=== PATIENT | female | born 1985 | race American Indian/Alaskan Native ===

== ENCOUNTER 2017-11-08 03:01 | Emergency (ER) | payer SELFPAY ==
[2017-11-08 04:17] LABS: Hematocrit 40.6 % (30.3-42.9); Hemoglobin 13.7 gm/dl (10.1-14.3); Mean Corpuscular HGB Conc 34 % (30-34); Mean Corpuscular Hemoglobin 30 pg (28-32); Mean Corpuscular Volume 90 fl (79-97); Platelet Count 357 K/mm3 (140-440); Red Blood Count 4.53 M/mm3 (3.65-5.03); Red Cell Distribution Width 12.9 % (13.2-15.2)
[2017-11-08 04:33] LABS: BUN/Creatinine Ratio 13; Blood Urea Nitrogen 10 mg/dL (7-17); Calcium 9.3 mg/dL (8.4-10.2); Hemolysis Index 5
--- NOTE | 2017-11-08 06:05 | Emergency Department Report ---
ED Seizure HPI - General Chief Complaint: Seizure Stated Complaint: SEIZURE Time Seen by Provider: 11/08/17 06:04 Source: patient, EMS Mode of arrival: Stretcher Limitations: No Limitations - History of Present Illness Initial Comments: Patient ran out of seizure medication and blood pressure medication for the past 2 weeks. She says she recently moved from [place] and she cannot get a medication refill. Patient complained of having a seizure while sleeping this morning. She is not post ictal at this time. She does not have any other complaint at this time. MD Complaint: seizure -: Sudden Description of Episode: loss of consciousness Witnessed:: No Trauma: No Seizure History: known seizure disorder, history of non-compliance Place: home Possible Precipitating Event: none Associated Symptoms: denies other symptoms Treatments Prior to Arrival: none - Related Data Previous Rx's Medication Instructions Recorded Last Taken Type Lisinopril/Hydrochlorothiazide 1 tab PO QDAY #60 tab 11/08/17 Unknown Rx [Zestoretic 20-25 mg] levETIRAcetam [Keppra] 750 mg PO BID #90 tablet 11/08/17 Unknown Rx Allergies Allergy/AdvReac Type Severity Reaction Status Date / Time Penicillins Allergy Rash Verified 11/08/17 03:14 ED Review of Systems ROS: Stated complaint: SEIZURE Other details as noted in HPI Comment: All other systems reviewed and negative Constitutional: denies: chills, fever Eyes: denies: eye pain, eye discharge ENT: denies: ear pain, throat pain Respiratory: denies: cough, orthopnea, shortness of breath Cardiovascular: denies: chest pain, palpitations, dyspnea on exertion Endocrine: no symptoms reported Gastrointestinal: denies: abdominal pain, nausea, vomiting, diarrhea Genitourinary: denies: urgency, dysuria, frequency Musculoskeletal: denies: back pain, joint swelling Skin: denies: rash, lesions, change in color Neurological: denies: headache, weakness, numbness Psychiatric: denies: anxiety, depression Hematological/Lymphatic: denies: easy bleeding, easy bruising ED Past Medical Hx - Past Medical History Hx Hypertension: Yes Hx Seizures: Yes - Surgical History Past Surgical History?: Yes Additional Surgical History: tubal - Social History Smoking Status: Former Smoker Substance Use Type: None - Medications Home Medications: Home Medications Medication Instructions Recorded Confirmed Last Taken Type Lisinopril/Hydrochlorothiazide 1 tab PO QDAY #60 tab 11/08/17 Unknown Rx [Zestoretic 20-25 mg] levETIRAcetam [Keppra] 750 mg PO BID #90 tablet 11/08/17 Unknown Rx ED Physical Exam - General Limitations: No Limitations General appearance: alert, in no apparent distress - Head Head exam: Present: atraumatic, normocephalic, normal inspection - Eye Eye exam: Present: normal appearance, PERRL, EOMI Pupils: Present: normal accommodation - ENT ENT exam: Present: normal exam, normal orophraynx, mucous membranes moist - Neck Neck exam: Present: normal inspection, full ROM. Absent: tenderness - Respiratory Respiratory exam: Present: normal lung sounds bilaterally. Absent: respiratory distress, wheezes, rales, rhonchi, stridor - Cardiovascular Cardiovascular Exam: Present: regular rate, normal rhythm, normal heart sounds - GI/Abdominal GI/Abdominal exam: Present: soft, normal bowel sounds. Absent: distended, tenderness, guarding, rebound, rigid - Extremities Exam Extremities exam: Present: normal inspection, full ROM, normal capillary refill. Absent: tenderness - Back Exam Back exam: Present: normal inspection, full ROM. Absent: tenderness - Neurological Exam Neurological exam: Present: alert, oriented X3, CN II-XII intact - Psychiatric Psychiatric exam: Present: normal affect, normal mood - Skin Skin exam: Present: warm, dry, intact, normal color. Absent: rash ED Course Vital Signs 11/08/17 11/08/17 11/08/17 03:03 06:55 06:56 Temperature 98 F Pulse Rate 84 72 72 Respiratory 18 Rate Blood Pressure 187/114 182/75 Blood Pressure 182/75 [Right] O2 Sat by Pulse 98 100 Oximetry 11/08/17 08:11 Temperature Pulse Rate 74 Respiratory 18 Rate Blood Pressure Blood Pressure 141/95 [Right] O2 Sat by Pulse 98 Oximetry - Reevaluation(s) Reevaluation #1: 11/08/17 16:07 Patient was told not to drive a motorized vehicle for the next 6 months until cleared by a neurologist. ED Medical Decision Making - Lab Data Result diagrams: 11/08/17 03:31 11/08/17 03:31 - Radiology Data Radiology results: report reviewed, image reviewed - Medical Decision Making Seizure disorder. Hypertension. Critical care attestation.: If time is entered above; I have spent that time in minutes in the direct care of this critically ill patient, excluding procedure time. ED Disposition Clinical Impression: Seizure disorder, Noncompliance with medication regimen Hypertension Qualifiers: Hypertension type: essential hypertension Qualified Code(s): I10 - Essential ( primary) hypertension Disposition: TO HOME OR SELFCARE Is pt being admited?: No Does the pt Need Aspirin: No Condition: Stable Instructions: Epilepsy (ED), Hypertension (ED) Additional Instructions: Please follow up with Dr Wiseman tomorrow morning. Please take your medication as prescribed. Return to the ED if your condition worsens. Prescriptions: levETIRAcetam [Keppra] 750 mg PO BID #90 tablet Lisinopril/Hydrochlorothiazide [Zestoretic 20-25 mg] 1 tab PO QDAY #60 tab Referrals: PRIMARY MD AGUILAR [Primary Care Provider] - 3-5 Days YULIANA WISEMAN MD [Staff Physician] - 3-5 Days Forms: Work/School Release Form(ED) Time of Disposition: 08:22
[2017-11-08] MEDS ORDERED: CATAPRES PO ONE (06:43)
[2017-11-08] MEDS ORDERED: KEPPRA 1,000 MG/NS 0.75% 100ML 1,000 MG/100 ML BAG IV ONE (06:43)
[2017-11-08] MEDS ORDERED: ZESTRIL PO ONE (08:06)
[2017-11-08 08:12] VITALS: BP 141/95
== END 2017-11-08 11:20 | disposition home or self-care (01) ==
LOC: ED 03:01
DX: G40.909 Epilepsy, unspecified, not intractable, without status epilepticus (principal); I10 Essential (primary) hypertension; Z98.51 Tubal ligation status; Z87.891 Personal history of nicotine dependence
CPT/HCPCS: 36415; 80048; 85027; 96374; 99284; J1953

== ENCOUNTER 2019-04-03 09:34 | Day surgery (SDC) | payer OTHER ==
[2019-04-03] MEDS ORDERED: LACTATED RINGERS 1,000 ML IV SCH (10:00)
--- NOTE | 2019-04-03 10:54 | Anesthesia Day of Surgery ---
Anesthesia Day of Surgery - Day of Surgery Patient Examined: Yes Patient H&P Reviewed: Yes Patient is NPO: Yes
--- NOTE | 2019-04-03 10:59 | Anesthesia Consultation ---
Anesthesia Consult and Med Hx Date of service: 04/03/19 - Airway Anesthetic Teeth Evaluation: Chipped (left upper) ROM Head & Neck: Adequate Mental/Hyoid Distance: Adequate Mallampati Class: Class III Intubation Access Assessment: Probably Good - Pre-Operative Health Status ASA Pre-Surgery Classification: ASA3 Proposed Anesthetic Plan: General - Pulmonary Hx Smoking: Yes (ON/OFF FOR 3YRS; QUIT AGAIN IN DECEMBER 2018) Hx Asthma: Yes (NO ATTACKS IN YEARS; NO RESCUE INH OR NEBS) - Cardiovascular System Hx Hypertension: Yes (SINCE AGE 10. States she can climb two flights of stairs) - Central Nervous System Hx Seizures: Yes (LAST ONE POSSIBLE THE WEEK OF 03/05/2019; DEFINITELY IN ) Hx Back Pain: Yes (AND SHOULDERS DUE TO OVERSIZED BREAST) Hx Psychiatric Problems: No - Hematic Hx Sickle Cell Disease: No - Other Systems Hx Alcohol Use: No Hx Substance Use: No Hx Obesity: Yes - Additional Comments Anesthesia Medical History Comments: Had seizure two weeks ago and believes it was from tramadol.
[2019-04-03] MEDS ORDERED: GABAPENTIN 500 MG/10 ML ORAL LIQD PO NR (11:00)
[2019-04-03] MEDS ORDERED: VANCOMYCIN/NS 1 GM/250 ML 1 GM/250 ML BAG IV NR (11:00)
[2019-04-03] MEDS ORDERED: ONDANSETRON 4 MG/2 ML INJ IV PRN ×2 (11:00→18:20)
[2019-04-03] MEDS ORDERED: LISINOPRIL 20 MG TAB PO NR (11:00)
[2019-04-03] MEDS ORDERED: GABAPENTIN 300 MG CAP PO NR (11:00)
[2019-04-03] MEDS ORDERED: HYDROmorphone 1 MG/1 ML INJ IV PRN (11:00)
[2019-04-03] MEDS ORDERED: dexAMETHasone 20 MG/5 ML VIAL ONE (11:00)
[2019-04-03] MEDS ORDERED: ACETAMINOPHEN 500 MG TAB PO NR (11:00)
[2019-04-03] MEDS ORDERED: SODIUM CHLORIDE 0.9% 1000 ML 1,000 ML, EPINEPHrine/PF 1:1,000 1 MG, LIDOCAINE 1% 20 mL ... IJ SCH (11:00)
[2019-04-03] MEDS ORDERED: MAGNESIUM OXIDE 400 MG TAB PO NR (11:00)
[2019-04-03] MEDS: MIDAZOLAM 2 MG/2 ML INJ IV NR ×2 (11:38→12:06)
[2019-04-03] MEDS ORDERED: LIDOCAINE 1%/EPINEPHRINE 1:100,000 VIAL (20 ML) INFILTRATI ONE ×2 (11:55→13:13)
[2019-04-03] MEDS ORDERED: PROPRANOLOL LA 60 MG CAP PO SCH (12:00)
[2019-04-03] MEDS ORDERED: PROPOFOL 200 MG/20 ML VIAL IV ONE (12:28)
[2019-04-03] MEDS ORDERED: LIDOCAINE MPF (2%) 20 MG/1 ML VIAL 5 ML ONE (12:28)
[2019-04-03] MEDS ORDERED: fentaNYL 100 MCG/2 ML INJ ONE (12:28)
[2019-04-03] MEDS ORDERED: ROCURONIUM 50 MG/5 ML INJ IV ONE (12:28)
[2019-04-03] MEDS ORDERED: SODIUM CHLORIDE 0.9% 1000 ML IV SOLN IJ ONE (13:22)
[2019-04-03] MEDS ORDERED: LIDOCAINE (1%) 10 MG/1 ML VIAL 20 ML MDV INFILTRATI ONE (13:22)
[2019-04-03] MEDS ORDERED: EPINEPHrine/PF (1:1,000) 1 MG/1 ML INJ IV ONE (13:22)
[2019-04-03] MEDS ORDERED: HYDROmorphone 1 MG/1 ML INJ ONE (13:34)
[2019-04-03] MEDS ORDERED: GLYCOPYRROLATE 0.4 MG/2 ML INJ ONE ×2 (17:55)
[2019-04-03] MEDS ORDERED: NEOSTIGMINE 10MG/10 ML INJ MDV ONE (17:55)
[2019-04-03] MEDS ORDERED: ONDANSETRON 4 MG/2 ML INJ ONE (17:57)
[2019-04-03] MEDS ORDERED: PHENYLEPHRINE/NS 1,000 MCG/10 ML SYRINGE (OR USE) IV ONE (17:58)
[2019-04-03] MEDS ORDERED: LACTATED RINGERS 1,000 ML ONE (18:05)
[2019-04-03] MEDS: HYDROmorphone 1 MG/1 ML INJ IV PRN ×2 (18:22→18:32)
--- NOTE | 2019-04-03 18:26 | Operative Report ---
Operative Report Operative Report: Preoperative Diagnosis: Symptomatic bilateral macromastia Post Operative Diagnosis: Same Procedure: Bilateral breast reduction Surgeon: Dr. Gem Olivier Line Clearance Foreman: ELPIDIO Tafoya Anesthesia: General Specimens: Right and left breast tissue, excised 1780g right breast; 1600g on the left EBL: 200cc Indications: This patient is a 33 year old AAF who presented with musculoskeletal complaints due to her very large breasts. She was approved for breast reduction to alleviate her symptoms. Patient is a smoker and was advised that she needed to quit smoking at a minimum of 4 weeks prior to and 4 weeks after surgery to prevent nicotine related healing complications. She stated that she had successfully quit. The benefits and risks of surgery were discussed in detail with the patient who expressed her understanding. Informed consent was obtained. Procedure: After review of pertinent history and physical exam findings the patient was marked in preop holding and brought into the operating room and placed supine on the OR table. After induction of adequate general anesthesia the patient's chest was prepped and draped in the usual sterile surgical fashion. To begin, vance were refreshed and measurements double checked and we reduced the right breast as follows: A 9cm inferior pedicle was outlined and de-epithelialized save the nipple and areola complex, which was measured out using a 4.5cm diameter and left completely attached to the inferior pedicle. After this, following a Ma pattern, skin incisions were made to elevate breast flaps superiorly and excise excess tissue on the medial and lateral aspect of the pedicle. Hemostasis was maintained with electrocautery. Saline solution was then used to irrigate the breast tissue and, satisfied with hemostasis and volume, we began to a 3-layered closure using 2-0 Monocryl and 3-0 Monoderm sutures. The same procedure was performed on the left side, with tissue re- arrangement and excision based on an inferior pedicle being performed to preserve the nipple areolar complex and as much breast tissue as possible for symmetry. Once all incisions were closed, they were sealed with Dermabond and dressed with Telfa and tegaderm dressings. This was followed by placement of a surgical bra. The patient was then awakened from general anesthesia and transferred to PACU in stable condition. There were no complications. All sponge needle and instrument counts were correct at the end of the case.
[2019-04-03 19:33] VITALS: BP 138/70
--- NOTE | 2019-04-03 19:33 | Post Anesthesia Evaluation ---
- Post Anesthesia Evaluation Patient Participated: Yes Airway Patent: Yes Stable Respiratory Function: Yes Nausea/Vomiting: No Temp > 96.8F: Yes Pain Manageable: Yes Adequeate Hydration: Yes Anesthesia Complications: No Block Receding Appropriately: Not Applicable Patient on Ventilator: No
== END 2019-04-03 20:35 | disposition home or self-care (01) ==
LOC: OR 09:34
PROVIDERS: ATTEND Plastic Surgery
DX: N62 Hypertrophy of breast (principal); I10 Essential (primary) hypertension; J45.909 Unspecified asthma, uncomplicated; E66.9 Obesity, unspecified; Z98.51 Tubal ligation status; Z98.890 Other specified postprocedural states; Z80.3 Family history of malignant neoplasm of breast; Z87.891 Personal history of nicotine dependence; Z88.0 Allergy status to penicillin; Z79.899 Other long term (current) drug therapy; Z88.8 Allergy status to other drugs, medicaments and biological substances
CPT/HCPCS: 19318; 36415; 84703; 88305; J0171; J1100; J1170; J2250; J2370; J2405; J2704; J2710; J3010; J3370; J7030; J7120